=== PATIENT | male | born 1990 | race Caucasian/White ===

== ENCOUNTER 2021-11-03 16:13 | Emergency (ER) | payer OTHER ==
[~2021-11-03] VITALS: Ht 175.3 cm; Wt 83.0 kg
--- NOTE | 2021-11-03 16:30 | NUR ---
TO ER BED 1. LOWER LIP LAC, GUM PAIN S/P HITTING FACE ON A COFFEE TABLE WHILE SLEEPING THIS MORNING AT AROUND 5AM. WARM BLANKET PROVIDED FOR COMFORT. AWAITING MD ORDERS.
--- NOTE | 2021-11-03 19:23 | NUR ---
Patient discharged to home in stable condition. Written and verbal after care instructions given. Patient verbalizes understanding of instruction.
[2021-11-03 19:24] VITALS: BP 122/70
== END 2021-11-03 19:24 | disposition home or self-care (01) ==
LOC: ER 16:21
DX: S01.511A Laceration without foreign body of lip, initial encounter (principal); S09.93XA Unspecified injury of face, initial encounter; K08.89 Other specified disorders of teeth and supporting structures; W22.8XXA Striking against or struck by other objects, initial encounter; Y93.89 Activity, other specified; Y92.89 Other specified places as the place of occurrence of the external cause; Y99.8 Other external cause status
CPT/HCPCS: 70486-TC